=== PATIENT | female | born 1930 | race Caucasian/White ===

== ENCOUNTER 2016-04-16 10:14 | Emergency (ER) | payer OTHER ==
[~2016-04-16] VITALS: Ht 139.7 cm; Wt 66.2 kg
[~2016-04-16 10:14] MED LIST: DIFLUNISAL500 M1 PO; LOSARTAN POTAS100 M1 PO; TRAMADOL HCL50 M1 PO
[2016-04-16] MEDS ORDERED: PRAVASTATIN SOD40 M2 PO (11:11)
[2016-04-16] MEDS ORDERED: BYSTOLIC10 M1 PO (11:11)
[2016-04-16] MEDS ORDERED: PANTOPRAZOLE SO40 M1 PO (11:11)
--- NOTE | 2016-04-16 11:11 | ED GENERAL ADULT ---
History of Present Illness General Chief Complaint: Upper Respiratory Sx/Fever Stated Complaint: CONGESTION, SORE THROAT Source: patient, family Exam Limitations: poor historian Vital Signs & Intake/Output Vital Signs & Intake/Output Vital Signs Date Time Temp Pulse Resp B/P Pulse O2 O2 Flow FiO2 Ox Delivery Rate 04/16 1436 62 16 150/66 97 Room Air 04/16 1315 97.0 66 18 165/69 97 Room Air 04/16 1126 96 Room Air 04/16 1026 98.2 69 20 122/78 97 Room Air Allergies Coded Allergies: acetaminophen (From PERCOCET) (UNKNOWN 04/16/16) amoxicillin (From AUGMENTIN) (UNKNOWN 04/16/16) clavulanic acid (From AUGMENTIN) (UNKNOWN 04/16/16) oxycodone (From PERCOCET) (UNKNOWN 04/16/16) sodium hypochlorite solution (UNKNOWN 10/26/15) denosumab (JAW/TEETH PAIN 10/26/15) naproxen (SLEEPY AND DIZZY 10/26/15) Reconcile Medications Aspirin (Aspirin*) 81 MG TAB.CHEW 1 TAB PO DAILY HEART HEALTH (Reported) Cholecalciferol (Vitamin D3) (Vitamin D) 2,000 UNIT CAPSULE 1 CAP PO DAILY SUPPLEMENT (Reported) Cholecalciferol (Vitamin D3) (Vitamin D3) 1,000 UNIT CAPSULE 1 CAP PO DAILY SUPPLEMENT (Reported) Citalopram Hydrobromide (Citalopram HBr) 10 MG TABLET 1 TAB PO DAILY MENTAL HEALTH (Reported) Docusate Sodium (Colace) 100 MG CAPSULE 2 CAP PO DAILY GI (Reported) Hyoscyamine (Levsin) 0.125 MG TABLET 1 TAB PO Q4 PRN ABDOMINAL SPASMS Losartan Potassium 100 MG TABLET 1 TAB PO DAILY HTN (Reported) Magnesium Oxide (Magnesium) 250 MG TABLET SUPPLMENT (Reported) Nebivolol HCl (Bystolic) 10 MG TABLET 1 TAB PO DAILY HEART (Reported) Pantoprazole Sodium 40 MG TABLET.DR 1 TAB PO DAILY GI (Reported) Pravastatin Sodium 40 MG TABLET 1 TAB PO DAILY CHOLESTEROL (Reported) Psyllium Husk/Calcium Carb (Metamucil Plus Calcium Capsule) 1 GRAM-60 MG CAPSULE 2 CAP PO DAILY SUPPLEMENT (Reported) Triage Note: PT C/O CONGESTION, PRODUCTIVE COUGH, WEAKNESS, POOR APPETITE. [facility] Triage Nurses Notes Reviewed? yes Onset: Gradual Duration: week(s): (1) Timing: remote history Injury Environment: home Severity: moderate Severity Numbers: 7 No Modifying Factors: none Associated Symptoms: cough HPI: Patient is in 85-year-old female has history of hypertension presenting to the emergency department with family members with chief complaint of generalized malaise, tactile fevers and chills, nausea and diarrhea that been going on for the past one week. She saw her primary care physician today who did a flu swab which was negative. She was recommended to go to the emergency department for evaluation for concern of dehydration. Patient reports that she's been able to keep fluids down but a lot less than her baseline. Denies any headaches. No recent travel. Denies recent antibiotic use. Denies chest pain or shortness of breath. She does report intermittent productive cough. Has been using Robitussin without relief. (KARIS CONDE) Past History Travel History Traveled to [place] past 21 day No Medical History Any Pertinent Medical History? see below for history Cardiovascular: hypertension Gastrointestinal: GERD, DIVERTICULITIS Surgical History Surgical History: non-contributory Psychosocial History Who do you live with Spouse Services at Home None What is your primary language Haitian Tobacco Use: Never used ETOH Use: denies use Illicit Drug Use: denies illicit drug use Family History Hx Contributory? No (KARIS CONDE) Review of Systems Review of Systems Constitutional: Reports: see HPI, chills, malaise. Comments Review of systems: See HPI, All other systems negative. Constitutional, no weight loss HEENT: No visual changes Cardiovascular: No chest pain ,palpitation , orthopnea or ankle swelling Skin, no jaundice no rashes Respiratory: No dyspnea cough sputum or hemoptysis GI: no vomiting : No dysuria No hematuria Muscle skeletal: no back pain, no neck pain, Neurologic: No numbness no confusion, no headaches Psych: No stress anxiety or depression,. Heme/endocrine: No bruising no bleeding no polyuria or polydipsia Immunology: No splenectomy or history of AIDS (KARIS CONDE) Physical Exam Physical Exam General Appearance: well developed/nourished, no apparent distress, alert, awake , comfortable Comments: Well-developed well-nourished person in no acute distress HEENT: Normal EENT exam, extraocular motion intact, no nystagmus. Pupils equally round and reactive to light and accommodation. Nose is atraumatic. External auditory canal and Tympanic membranes clear. Pharynx is mildly erythematous, no exudates, clearing secretions without difficulty.. No swelling or edema. Mildly dry oral mucosa. Neck: Supple, mild anterior cervical lymphadenopathy bilaterally, nontender, normal range of motion without pain or tenderness Back: Nontender, no CVA tenderness. Cardiovascular: Regular rate and rhythms no murmurs rubs or gallops, normal JVP Respiratory: Chest nontender. No respiratory distress.slight wheezing to auscultation bilaterally at the bases. Abdomen: Soft, nontender nondistended, no appreciable organomegaly. Normal bowel sounds. No ascites and no rebound or guarding. Extremity: No edema, no calf tenderness to palpation, normal and equal pulses. Neuro: Alert oriented x3, motor sensory normal, cranial nerves II through XII grossly intact. Skin: No appreciable rash on exposed skin, skin is warm and dry. Psych: Mood and affect is normal, memory and judgment is normal. Core Measures ACS in differential dx? Yes CVA/TIA Diagnosis: No Severe Sepsis Present: No Septic Shock Present: No (KARIS CONDE) Progress Differential Diagnoses I considered the following diagnoses in my evaluation of the patient: Dehydration, electrolyte abnormality, influenza, strep, pneumonia, bronchitis, viral syndrome Plan of Care: Orders Procedure Date/time Status Heart Healthy Diet 04/16 L Active Add-on Test (ER Only) 04/16 1225 Active CULTURE,URINE 04/16 1157 Active RAPID VIRAL INFLUENZA A 04/16 1110 Complete THROAT CULTURE W/QUICK STREP 04/16 1110 Active BLOOD CULTURE 04/16 1110 Active URINALYSIS 04/16 1110 Complete COMPREHENSIVE METABOLIC PANEL 04/16 1110 Complete CBC WITHOUT DIFFERENTIAL 04/16 1110 Complete EKG 04/16 1110 Active Laboratory Tests 04/16/16 1230: Anion Gap 9, Estimated GFR 39 L, BUN/Creatinine Ratio 13.8, Glucose 83, Calcium 8.5, Total Bilirubin 0.6, AST 51 H, ALT 59 H, Alkaline Phosphatase 90, Total Protein 6.1 L, Albumin 3.6, Globulin 2.5, Albumin/Globulin Ratio 1.4 04/16/16 1157: Urinalysis LIGHT H, Urine Color YEL, Urine Clarity HAZY H, Urine pH 6.0, Ur Specific [place] 1.015, Urine Protein TRACE H, Urine Ketones NEG, Urine Nitrite NEG, Urine Bilirubin NEG, Urine Urobilinogen 0.2, Ur Leukocyte Esterase NEG, Ur Microscopic SEDIMENT EXAMINED, Urine RBC 1-3, Urine WBC 5-10 H, Ur Epithelial Cells FEW, Hyaline Casts RARE H, Urine Mucus FEW, Urine Hemoglobin TRACE-INTACT , Urine Glucose NEG 04/16/16 1150: CBC w Diff NO MAN DIFF REQ, RBC 4.72, MCV 85.1, MCH 28.9, RDW 14.1, MPV 8.3, Gran % 64.0, Lymphocytes % 21.1, Monocytes % 13.8 H, Eosinophils % 0.5, Basophils % 0.6, Absolute Granulocytes 2.4, Absolute Lymphocytes 0.8 L, Absolute Monocytes 0.5, Absolute Eosinophils 0, Absolute Basophils 0, PUBS MCHC 33.9 Microbiology 04/16 1219 BLOOD: Blood Culture - RECD 04/16 1157 URINE ROUT: Urine Culture - RECD 04/16 1150 BLOOD: Blood Culture - RECD Diagnostic Imaging: Viewed by Me: Radiology Read. Discussed w/RAD: Radiology Read. CXR Impression: PATIENT: MESSI ALLISON PRESENT AGE: 85 PATIENT ACCOUNT NO: [id number] : 29 LOCATION: [facility] ORDERING PHYSICIAN: KARIS LEE SERVICE DATE: 04/16/16 EXAM TYPE: RAD - XRY-CHEST XRAY, PA AND LATERAL EXAMINATION: XR CHEST CLINICAL INFORMATION: Wheezing and malaise. COMPARISON: 01/09/2013 TECHNIQUE: 2 views of the chest were obtained. FINDINGS: There is a right-sided pacemaker with dual leads in unchanged position. Mild cardiomegaly is stable. Unfolding of the thoracic aorta is stable. There is stable elevation of the right hemidiaphragm. The lungs remain clear. No consolidation, pulmonary edema, pleural effusion, or pneumothorax. Mild asymmetric prominence of the right perihilar vascular structures appears chronic, and may be due to vascular crowding in the setting of volume loss. A hiatal hernia is stable. There are degenerative changes of the spine with chronic vertebral body height loss in the upper thoracic region. Platelike opacity projecting over the upper thoracic spine is stable, was not definitively visualized on the intervening plain films of the thoracic spine from 11/19/2015, and is possibly related to superimposition of structures. IMPRESSION: No acute abnormality. Stable findings as above. Initial ED EKG: ATRIAL PACED RHYTHM 67 BPM Comments: 04/16/2016 1:03:18 PM patient is well-appearing and in no acute distress, vital stable. No abdominal pain on exam. Likely viral syndrome. We'll assess hydration status with CBC, CMP, patient will be medicated with IV fluids. Lungs are slightly diminished we'll obtain chest x-ray to rule out pneumonia. We'll obtain urinalysis, throat swab, influenza swab. 04/16/2016 1:54:01 PM patient feeling much better after IV hydration and Levsin. Patient would like to eat a tuna sandwich. 04/16/2016 2:04:17 PM patient eating a sandwich without difficulty no nausea. She'll follow up with PCP. Discussed with Dr. Terry AND he agrees to plan. (KARIS CONDE) Departure Departure Time of Disposition: 1326 Disposition: HOME OR SELF CARE Condition: Stable Clinical Impression Primary Impression: Malaise Secondary Impressions: Dehydration, Nausea Referrals: MARISA DECKER APRN (PCP/Family) Additional Instructions: Follow-up with your primary care physician in the next 24-48 hours. Increase fluids as her labs did show that you are slightly dehydrated. Return for worsening symptoms if YOU developed pain in the right lower quadrant or concerns. Departure Forms: Customer Survey D/C INS-APPENDICITIS EXCLUSION General Discharge Information Prescriptions: Current Visit Scripts Hyoscyamine (Levsin) 1 TAB PO Q4 PRN ABDOMINAL SPASMS #30 TAB (KARIS CONDE) PA/FINISH PATCHER Co-Sign Statement Statement: ED Attending supervision documentation- x I saw and evaluated the patient. I have also reviewed all the pertinent lab results and diagnostic results. I agree with the findings and the plan of care as documented in the PA's/FINISH PATCHER's documentation. [] I have reviewed the ED Record and agree with the PA's/FINISH PATCHER's documentation. [] Additions or exceptions (if any) to the PAs/FINISH PATCHER's note and plan are summarized below: [] (ANIA LING,ALEXANDRO) Critical Care Note Critical Care Note Critical Care Time: non-applicable (KARIS CONDE)
[2016-04-16] MEDS ORDERED: COLACE100 M1 PO (11:12)
[2016-04-16] MEDS ORDERED: METAMUCIL PLUS1 EACH PO (11:12)
[2016-04-16] MEDS ORDERED: CITALOPRAM HBR10 MG PO (11:12)
[2016-04-16] MEDS ORDERED: VITAMIN D2000 UNIT PO (11:13)
[2016-04-16] MEDS ORDERED: ASPIRIN81 M4 PO (11:13)
[2016-04-16] MEDS ORDERED: VITAMIN D31000 UNI1 PO (11:13)
[2016-04-16] MEDS ORDERED: MAGNESIUM250 M2 PO (11:14)
[2016-04-16 12:06] LABS: ABSOLUTE BASOPHIL COUNT 0 /CUMM (0.0-0.2); ABSOLUTE EOSINOPHIL COUNT 0 /CUMM (0.0-0.7); ABSOLUTE GRANULOCYTE CT 2.4 /CUMM (1.4-6.5); ABSOLUTE LYMPH COUNT 0.8 /CUMM (1.2-3.4); ABSOLUTE MONOCYTE COUNT 0.5 /CUMM (0.10-0.60); BASOPHIL % 0.6 % (0.0-2.0); EOSINOPHIL % 0.5 % (0-5); HEMATOCRIT 40.2 % (37-47); MEAN CORPUSCULAR HGB 28.9 PG (27.0-31.0); MEAN CORPUSCULAR HGB CONC 33.9 G/DL (33.0-37.0); MEAN CORPUSCULAR VOLUME 85.1 FL (81.0-99.0); MEAN PLATELET VOLUME 8.3 FL (7.4-10.4); PLATELET COUNT 204 /CUMM (130-400); RBC DISTRIBUTION WIDTH 14.1 % (11.5-14.5); RED BLOOD CELL CT 4.72 /CUMM (4.20-5.40); WHITE BLOOD CELL COUNT 3.7 /CUMM (4.8-10.8)
--- NOTE | 2016-04-16 12:21 | RADIOLOGY REPORT ---
EXAMINATION: XR CHEST CLINICAL INFORMATION: Wheezing and malaise. COMPARISON: 01/09/2013 TECHNIQUE: 2 views of the chest were obtained. FINDINGS: There is a right-sided pacemaker with dual leads in unchanged position. Mild cardiomegaly is stable. Unfolding of the thoracic aorta is stable. There is stable elevation of the right hemidiaphragm. The lungs remain clear. No consolidation, pulmonary edema, pleural effusion, or pneumothorax. Mild asymmetric prominence of the right perihilar vascular structures appears chronic, and may be due to vascular crowding in the setting of volume loss. A hiatal hernia is stable. There are degenerative changes of the spine with chronic vertebral body height loss in the upper thoracic region. Platelike opacity projecting over the upper thoracic spine is stable, was not definitively visualized on the intervening plain films of the thoracic spine from 11/19/2015, and is possibly related to superimposition of structures. IMPRESSION: No acute abnormality. Stable findings as above.
[2016-04-16] MEDS ORDERED: LEVSIN0.125 M1 PO (13:27)
[2016-04-16 14:36] VITALS: BP 150/66
== END 2016-04-16 14:36 ==
LOC: ERH 10:14
PROVIDERS: Physician Assistant
DX: E86.0 Dehydration (principal); R53.81 Other malaise; R11.0 Nausea
CPT/HCPCS: 81001; 87040; 87086; 87804; 87804-59; 93005; 93010; 96361; 96374; J2405; J7040